=== PATIENT | female | born 1995 | race Caucasian/White ===

== ENCOUNTER 2018-02-18 19:27 | Emergency (ER) | payer OTHER, MEDICAID, SELFPAY ==
[2018-02-18 19:32] VITALS: BP 147/79; PULSE 92; RESP 20; TEMP 37.3; O2SAT 100
--- NOTE | 2018-02-18 19:39 | ED.ABDPAIN ---
HPI - Abdominal Pain <Kelley Glover PA-C - Last Filed: 02/18/18 22:18> General Chief Complaint: Abdominal Pain Stated Complaint: right side pain x2 days Time Seen by Provider: 02/18/18 19:39 Source: patient Mode of arrival: ambulatory Limitations: no limitations History of Present Illness HPI narrative: This 22-year-old female comes in due to recurrent right upper quadrant pain that starts shortly after eating. This started about a month ago. She states the pain radiates into the shoulder area, usually occurs at night after dinner. Tonight, the she had an egg roll and orange chicken, and states she ate some cookie dough earlier. It occured after eating ice cream previously as well. Pain started shortly after dinner. She states that she saw her PCP 2 or 3 times for this and had an ultrasound which was normal. She was not symptomatic when the pain happened, was told due to muscle spasm. She states that Flexeril was prescribed but not helpful. She denies any nausea or vomiting. She denies any fever. She denies any new urinary symptoms. She denies any bowel habit changes. She denies any possibility of , not sexually active currently. States her last period was last month. She states pain can radiate into her shoulder area but denies any chest pain, dyspnea, or other new symptoms. Related Data Previous Rx's Medication Instructions Recorded azithromycin [Zithromax Z-Miki] 0 tab PO QDAY #6 tab 04/01/17 Allergies Allergy/AdvReac Type Severity Reaction Status Date / Time clindamycin [CLINDAMYCIN] Allergy Intermediate hot and Verified 02/18/18 20:02 itchy Penicillins [PENICILLINS] Allergy Intermediate severe Verified 02/18/18 20:02 hives Review of Systems <Kelley Glover PA-C - Last Filed: 02/18/18 22:18> Review of Systems All systems reviewed & are unremarkable except as noted in HPI and below Exam <Kelley Glover PA-C - Last Filed: 02/18/18 22:18> Narrative Exam Narrative: GENERAL APPEARANCE: Patient sitting comfortably, in no distress. HEENT: PERRL, EOMI, no scleral icterus NECK: Supple LUNGS: Clear to auscultation bilaterally. HEART: Rate and rhythm regular, normal S1 and S2, no S3 or S4. ABDOMEN: Soft, nondistended, bowel sounds present x 4 quadrants, no masses palpable, no hepatosplenomegaly. Exquisite right upper quadrant tenderness with positive Dennis sign, no rebound or guarding. No tenderness elsewhere. No CVAT EXTREMITIES: No edema, no cyanosis DERMATOLOGIC: No jaundice or exanthem NEUROLOGIC: Alert and oriented with normal speech and coordination Initial Vital Signs Initial Vital Signs: Vital Signs Temperature 99.1 F 02/18/18 19:32 Pulse Rate 92 H 02/18/18 19:32 Respiratory Rate 20 02/18/18 19:32 Blood Pressure 147/79 H 02/18/18 19:32 Pulse Oximetry 100 02/18/18 19:32 <Nia Hanson DO - Last Filed: 02/19/18 03:02> Initial Vital Signs Initial Vital Signs: Vital Signs Temperature 99.1 F 02/18/18 19:32 Pulse Rate 92 H 02/18/18 19:32 Respiratory Rate 20 02/18/18 19:32 Blood Pressure 147/79 H 02/18/18 19:32 Pulse Oximetry 100 02/18/18 19:32 Course <Kelley Glover PA-C - Last Filed: 02/18/18 22:18> Additional Information: Patient is feeling improved prior to discharge. Advised she does not appear to have any acute surgical issue or need for admission, but her pain is recurrent. Explained that I suspect some type of biliary colic source that is not evident on scans or labs, and may need more specialized workup and testing. Advised follow-up with PCP to discuss and she is agreeable with this as well as plan for return if any acutely worsening symptoms or new symptoms such as vomiting or fever in the interim. Orders Ordered: ED Orders 02/18/18 19:40 Complete Blood Count AUTO DIFF Stat Comprehensive Metabolic Panel Stat Lipase Stat 02/18/18 19:46 US abdomen complete Stat 02/18/18 20:36 CT abdomen pelvis w con Stat Discontinued Medications Sodium Chloride (Normal Saline 0.9%) 1,000 mls @ 1,000 mls/hr IV BOLUS ONE Stop: 02/18/18 21:38 Last Infusion: 02/18/18 22:12 Dose: 0 mls/hr Admin: 02/18/18 20:43 Dose: 1,000 mls/hr Ketorolac Tromethamine (Toradol) 30 mg IV NOW ONE Stop: 02/18/18 19:47 Last Admin: 02/18/18 20:02 Dose: 30 mg Vital Signs - 8 hr 02/18/18 19:32 02/18/18 22:09 Temperature 99.1 F Pulse Rate 92 H 71 Respiratory Rate 20 16 Blood Pressure 147/79 H 107/58 L Pulse Oximetry 100 99 <Nia Hanson DO - Last Filed: 02/19/18 03:02> Orders Ordered: ED Orders 02/18/18 19:40 Complete Blood Count AUTO DIFF Stat Comprehensive Metabolic Panel Stat Lipase Stat 02/18/18 19:46 US abdomen complete Stat 02/18/18 20:36 CT abdomen pelvis w con Stat Discontinued Medications Sodium Chloride (Normal Saline 0.9%) 1,000 mls @ 1,000 mls/hr IV BOLUS ONE Stop: 02/18/18 21:38 Last Infusion: 02/18/18 22:12 Dose: 0 mls/hr Admin: 02/18/18 20:43 Dose: 1,000 mls/hr Ketorolac Tromethamine (Toradol) 30 mg IV NOW ONE Stop: 02/18/18 19:47 Last Admin: 02/18/18 20:02 Dose: 30 mg Vital Signs - 8 hr 02/18/18 19:32 02/18/18 22:09 Temperature 99.1 F Pulse Rate 92 H 71 Respiratory Rate 20 16 Blood Pressure 147/79 H 107/58 L Pulse Oximetry 100 99 MDM - Abdominal Pain <Kelley Glover PA-C - Last Filed: 02/18/18 22:18> Lab Data Attestation: I reviewed the patient's lab results. Result diagrams: 02/18/18 19:40 02/18/18 19:40 Lab Results 02/18/18 02/18/18 Range/Units 19:40 19:40 WBC 10.6 (4.5-11.0) X10^3/uL RBC 4.25 (4.0-5.2) X10^6/uL Hgb 12.3 (12.0-16.0) g/dL Hct 36.4 (36-46) % MCV 85.7 (80-100) fL MCH 29.0 (26-34) PG MCHC 33.8 (30-36) % RDW 14.3 (11.6-14.8) % Plt Count 327 (150-400) X10^3/uL Neut % (Auto) 60.8 (50-75) % Lymph % (Auto) 31.2 (25-40) % [place] % (Auto) 6.1 (3-14) % Eos % (Auto) 1.5 L (2-4) % Baso % (Auto) 0.4 (0-2) % Neut # (Auto) 6400 H (8889-5990) /uL Sodium 142 (137-145) mmol/L Potassium 4.0 (3.4-5.1) mmol/L Chloride 105 (98-107) mmol/L Carbon Dioxide 25 (22-32) mmol/L BUN 16 (7-17) mg/dL Creatinine 0.60 (0.52-1.04) mg/dL Estimated GFR > 60.0 (>60) mL/min BUN/Creatinine Ratio 26.7 H (6-22) Glucose 101 H (70-100) mg/dL Calcium 9.2 (8.4-10.2) mg/dL Total Bilirubin 0.2 (0.2-1.3) mg/dL AST 25 (14-36) IU/L ALT 26 (9-52) IU/L Alkaline Phosphatase 49 (38-126) U/L Total Protein 7.7 (6.3-8.2) g/dL Albumin 4.5 (3.5-5.0) g/dL Globulin 3.2 (1.7-4.1) g/dL Albumin/Globulin Ratio 1.4 (1.0-2.8) Lipase 137 (23-300) U/L Point of care testing: Point of Care Testing Test Results Negative Urine Dip Bedside Urine Glucose Negative Bedside Urine Bilirubin - Negative Bedside Urine Ketone - Negative Urine Specific [place] 1.025 Bedside Urine Occult Blood - Negative Bedside Urine pH 6 Bedside Urine Protein +/- 15 Bedside Urine Urobilinogen - Negative Bedside Urine Nitrite - Negative Bedside Urine Leukocytes - Negative Esterase Imaging Data CT scan - abdomen: Radiologist's impression: [address] [address] [address] Scan Report Signed Patient: Eli CrawfordMR#: [id number] : 1995Acct:[id number] Age/Sex: 22 / FDate of Service: 02/18/18 Loc: ED Accession Number: [id number] Procedure: CT abdomen pelvis w con Ordering Provider: Kelley Glover P.A-C PROCEDURE: CT ABDOMEN PELVIS W CON INDICATIONS: R UQ pain recurrent TECHNIQUE: After the administration of intravenous contrast, 5 mm thick sections acquired from the diaphragm to the symphysis. 5 mm coronal and sagittal reformats were acquired. For radiation dose reduction, the following was used: automated exposure control, adjustment of mA and/or kV according to patient size. COMPARISON: None. FINDINGS: Image quality: Excellent. ABDOMEN: Lung bases: Lung bases are clear. Heart size is normal. Solid organs: Liver is normal in size and enhancement. Gallbladder appears normal, contracted. Biliary system is non dilated. Pancreas enhances normally. Spleen is normal in size and enhancement. No adrenal nodules. Kidneys demonstrate normal size and enhancement, without hydronephrosis. Peritoneum and bowel: Bowel loops demonstrate normal wall thickness and caliber. No free fluid or air. There is mild gentle colonic obstipation Nodes and vessels: No retroperitoneal or mesenteric adenopathy by size criteria. Aorta and inferior vena cava are normal in size. Miscellaneous: No ventral hernias. PELVIS: Genitourinary: Bladder wall thickness is normal. Miscellaneous: No inguinal hernias or adenopathy. Bones: No suspicious bony lesions. No vertebral body compression fractures. IMPRESSION: A mild degree of colonic obstipation is present. No inflammatory changes seen. Source of current symptoms is not found otherwise. Dictated by: Shaw Billingsley M.D. on 02/18/2018 at 21:11 Approved by: Shaw Billingsley M.D. on 02/18/2018 at 21:12 US - abdomen: Radiologist's impression: [address] [address] Ultrasound Report Signed Patient: Eli CrawfordMR#: [id number] : 1995Acct:[id number] Age/Sex: 22 / FDate of Service: 02/18/18 Loc: ED Accession Number: [id number] Procedure: US abdomen complete Ordering Provider: Kelley Glover P.A-C PROCEDURE: US ABDOMEN COMPLETE INDICATIONS: post prandial R. UQ pain TECHNIQUE: Real-time scanning was performed of the abdominal and retroperitoneal organs, with image documentation. COMPARISON: None. FINDINGS: Liver: Liver is normal in size and homogeneous in echotexture. Gallbladder: The gallbladder appears normal Biliary ducts: Intrahepatic bile ducts are non-dilated. Extrahepatic bile duct caliber measures 4.0 mm. Normal is 6-7 mm or less in diameter, or 10 mm or less post-cholecystectomy. Pancreas: Visualized portions of the pancreas are sonographically normal. Spleen: Spleen is normal in size and homogeneous in echotexture. Kidneys: Kidneys are normal in size and echotexture. Right kidney measures 12.3 cm long; left kidney measures 11.6 cm long. No hydronephrosis or nephrolithiasis. No solid masses. Aorta: Visualized aorta is normal in caliber at less than 3 cm. Iliacs: Proximal common iliac arteries are normal in caliber at less than 2.5 cm. IVC: Intrahepatic inferior vena cava is patent. Miscellaneous: No free abdominal fluid. IMPRESSION: Normal examination, no sign of hepatobiliary disease. Source of right upper quadrant pain is not found. Dictated by: Shaw Billingsley M.D. on 02/18/2018 at 21:01 Approved by: Shaw Billingsley M.D. on 02/18/2018 at 21:02 <Nia Hanson DO - Last Filed: 02/19/18 03:02> Lab Data Lab Results 02/18/18 02/18/18 Range/Units 19:40 19:40 WBC 10.6 (4.5-11.0) X10^3/uL RBC 4.25 (4.0-5.2) X10^6/uL Hgb 12.3 (12.0-16.0) g/dL Hct 36.4 (36-46) % MCV 85.7 (80-100) fL MCH 29.0 (26-34) PG MCHC 33.8 (30-36) % RDW 14.3 (11.6-14.8) % Plt Count 327 (150-400) X10^3/uL Neut % (Auto) 60.8 (50-75) % Lymph % (Auto) 31.2 (25-40) % [place] % (Auto) 6.1 (3-14) % Eos % (Auto) 1.5 L (2-4) % Baso % (Auto) 0.4 (0-2) % Neut # (Auto) 6400 H (9046-0982) /uL Sodium 142 (137-145) mmol/L Potassium 4.0 (3.4-5.1) mmol/L Chloride 105 (98-107) mmol/L Carbon Dioxide 25 (22-32) mmol/L BUN 16 (7-17) mg/dL Creatinine 0.60 (0.52-1.04) mg/dL Estimated GFR > 60.0 (>60) mL/min BUN/Creatinine Ratio 26.7 H (6-22) Glucose 101 H (70-100) mg/dL Calcium 9.2 (8.4-10.2) mg/dL Total Bilirubin 0.2 (0.2-1.3) mg/dL AST 25 (14-36) IU/L ALT 26 (9-52) IU/L Alkaline Phosphatase 49 (38-126) U/L Total Protein 7.7 (6.3-8.2) g/dL Albumin 4.5 (3.5-5.0) g/dL Globulin 3.2 (1.7-4.1) g/dL Albumin/Globulin Ratio 1.4 (1.0-2.8) Lipase 137 (23-300) U/L Point of care testing: Point of Care Testing Test Results Negative Urine Dip Bedside Urine Glucose Negative Bedside Urine Bilirubin - Negative Bedside Urine Ketone - Negative Urine Specific [place] 1.025 Bedside Urine Occult Blood - Negative Bedside Urine pH 6 Bedside Urine Protein +/- 15 Bedside Urine Urobilinogen - Negative Bedside Urine Nitrite - Negative Bedside Urine Leukocytes - Negative Esterase Discharge Plan Departure Patient Disposition: Home Clinical Impression: Abdominal pain, Biliary pain Discharge Date/Time: 02/18/18 22:09 Interventions: ED Discharge Assessment Last Done: 02/18/18 22:09 Instructions: DI for Abdominal Pain-Adult Activity Restrictions/Additional Instructions: Please return if you have acutely worsening symptoms again, or new symptoms with this such as vomiting or fever. Otherwise, please try eating small amounts of bland food more frequently. Avoid eating any fatty or greasy foods. The pattern and quality of your pain on your history and when I examined you tonight very similar to gallbladder pain, but your testing does not show any problem there. There are some types of problems that may not show up on these tests, i.e. Sphincter of Oddi dysfunction, which relates to a gallbladder muscle and may not show up on testing. Please follow-up with your PCP this week and talk about further testing and a possible referral to a specialist for further evaluation since the muscle relaxant you tried did not help. Please take 800mg (4 over the counter tablets) of Ibuprofen and you can add Tylenol as needed if you have recurrent pain at home. Prescriptions: No Action azithromycin [Zithromax Z-Miki] 250 MG tablet PO QDAY Qty: 6 RF: 0 Referrals: Padmaja Bhat DO [Non-Staff] - <Nia Hanson DO - Last Filed: 02/19/18 03:02> Cosign ED Attending Cosignature Attestation: I was immediately available in the department for consultation. This documentation has been reviewed and I agree with assessment and plan. Supervised by Nia Hanson DO
--- NOTE | 2018-02-18 19:46 | DI.US.S_ITS ---
PROCEDURE: US ABDOMEN COMPLETE INDICATIONS: post prandial R. UQ pain TECHNIQUE: Real-time scanning was performed of the abdominal and retroperitoneal organs, with image documentation. COMPARISON: None. FINDINGS: Liver: Liver is normal in size and homogeneous in echotexture. Gallbladder: The gallbladder appears normal Biliary ducts: Intrahepatic bile ducts are non-dilated. Extrahepatic bile duct caliber measures 4.0 mm. Normal is 6-7 mm or less in diameter, or 10 mm or less post-cholecystectomy. Pancreas: Visualized portions of the pancreas are sonographically normal. Spleen: Spleen is normal in size and homogeneous in echotexture. Kidneys: Kidneys are normal in size and echotexture. Right kidney measures 12.3 cm long; left kidney measures 11.6 cm long. No hydronephrosis or nephrolithiasis. No solid masses. Aorta: Visualized aorta is normal in caliber at less than 3 cm. Iliacs: Proximal common iliac arteries are normal in caliber at less than 2.5 cm. IVC: Intrahepatic inferior vena cava is patent. Miscellaneous: No free abdominal fluid. IMPRESSION: Normal examination, no sign of hepatobiliary disease. Source of right upper quadrant pain is not found. Dictated by: Shaw Billingsley M.D. on 02/18/2018 at 21:01 Approved by: Shaw Billingsley M.D. on 02/18/2018 at 21:02
--- NOTE | 2018-02-18 19:59 | ED_ITS ---
HPI - Abdominal Pain <Kelley Glover PA-C - Last Filed: 02/18/18 22:18> General Chief Complaint: Abdominal Pain Stated Complaint: right side pain x2 days Time Seen by Provider: 02/18/18 19:39 Source: patient Mode of arrival: ambulatory Limitations: no limitations History of Present Illness HPI narrative: This 22-year-old female comes in due to recurrent right upper quadrant pain that starts shortly after eating. This started about a month ago. She states the pain radiates into the shoulder area, usually occurs at night after dinner. Tonight, the she had an egg roll and orange chicken, and states she ate some cookie dough earlier. It occured after eating ice cream previously as well. Pain started shortly after dinner. She states that she saw her PCP 2 or 3 times for this and had an ultrasound which was normal. She was not symptomatic when the pain happened, was told due to muscle spasm. She states that Flexeril was prescribed but not helpful. She denies any nausea or vomiting. She denies any fever. She denies any new urinary symptoms. She denies any bowel habit changes. She denies any possibility of , not sexually active currently. States her last period was last month. She states pain can radiate into her shoulder area but denies any chest pain, dyspnea, or other new symptoms. Related Data Previous Rx's Medication Instructions Recorded azithromycin [Zithromax Z-Miki] 0 tab PO QDAY #6 tab 04/01/17 Allergies Allergy/AdvReac Type Severity Reaction Status Date / Time clindamycin [CLINDAMYCIN] Allergy Intermediate hot and Verified 02/18/18 20:02 itchy Penicillins [PENICILLINS] Allergy Intermediate severe Verified 02/18/18 20:02 hives Review of Systems <Kelley Glover PA-C - Last Filed: 02/18/18 22:18> Review of Systems All systems reviewed & are unremarkable except as noted in HPI and below Exam <Kelley Glover PA-C - Last Filed: 02/18/18 22:18> Narrative Exam Narrative: GENERAL APPEARANCE: Patient sitting comfortably, in no distress. HEENT: PERRL, EOMI, no scleral icterus NECK: Supple LUNGS: Clear to auscultation bilaterally. HEART: Rate and rhythm regular, normal S1 and S2, no S3 or S4. ABDOMEN: Soft, nondistended, bowel sounds present x 4 quadrants, no masses palpable, no hepatosplenomegaly. Exquisite right upper quadrant tenderness with positive Dennis sign, no rebound or guarding. No tenderness elsewhere. No CVAT EXTREMITIES: No edema, no cyanosis DERMATOLOGIC: No jaundice or exanthem NEUROLOGIC: Alert and oriented with normal speech and coordination Initial Vital Signs Initial Vital Signs: Vital Signs Temperature 99.1 F 02/18/18 19:32 Pulse Rate 92 H 02/18/18 19:32 Respiratory Rate 20 02/18/18 19:32 Blood Pressure 147/79 H 02/18/18 19:32 Pulse Oximetry 100 02/18/18 19:32 <Nia Hanson DO - Last Filed: 02/19/18 03:02> Initial Vital Signs Initial Vital Signs: Vital Signs Temperature 99.1 F 02/18/18 19:32 Pulse Rate 92 H 02/18/18 19:32 Respiratory Rate 20 02/18/18 19:32 Blood Pressure 147/79 H 02/18/18 19:32 Pulse Oximetry 100 02/18/18 19:32 Course <Kelley Glover PA-C - Last Filed: 02/18/18 22:18> Additional Information: Patient is feeling improved prior to discharge. Advised she does not appear to have any acute surgical issue or need for admission, but her pain is recurrent. Explained that I suspect some type of biliary colic source that is not evident on scans or labs, and may need more specialized workup and testing. Advised follow-up with PCP to discuss and she is agreeable with this as well as plan for return if any acutely worsening symptoms or new symptoms such as vomiting or fever in the interim. Orders Ordered: ED Orders 02/18/18 19:40 Complete Blood Count AUTO DIFF Stat Comprehensive Metabolic Panel Stat Lipase Stat 02/18/18 19:46 US abdomen complete Stat 02/18/18 20:36 CT abdomen pelvis w con Stat Discontinued Medications Sodium Chloride (Normal Saline 0.9%) 1,000 mls @ 1,000 mls/hr IV BOLUS ONE Stop: 02/18/18 21:38 Last Infusion: 02/18/18 22:12 Dose: 0 mls/hr Admin: 02/18/18 20:43 Dose: 1,000 mls/hr Ketorolac Tromethamine (Toradol) 30 mg IV NOW ONE Stop: 02/18/18 19:47 Last Admin: 02/18/18 20:02 Dose: 30 mg Vital Signs - 8 hr 02/18/18 19:32 02/18/18 22:09 Temperature 99.1 F Pulse Rate 92 H 71 Respiratory Rate 20 16 Blood Pressure 147/79 H 107/58 L Pulse Oximetry 100 99 <Nia Hanson DO - Last Filed: 02/19/18 03:02> Orders Ordered: ED Orders 02/18/18 19:40 Complete Blood Count AUTO DIFF Stat Comprehensive Metabolic Panel Stat Lipase Stat 02/18/18 19:46 US abdomen complete Stat 02/18/18 20:36 CT abdomen pelvis w con Stat Discontinued Medications Sodium Chloride (Normal Saline 0.9%) 1,000 mls @ 1,000 mls/hr IV BOLUS ONE Stop: 02/18/18 21:38 Last Infusion: 02/18/18 22:12 Dose: 0 mls/hr Admin: 02/18/18 20:43 Dose: 1,000 mls/hr Ketorolac Tromethamine (Toradol) 30 mg IV NOW ONE Stop: 02/18/18 19:47 Last Admin: 02/18/18 20:02 Dose: 30 mg Vital Signs - 8 hr 02/18/18 19:32 02/18/18 22:09 Temperature 99.1 F Pulse Rate 92 H 71 Respiratory Rate 20 16 Blood Pressure 147/79 H 107/58 L Pulse Oximetry 100 99 MDM - Abdominal Pain <Kelley Glover PA-C - Last Filed: 02/18/18 22:18> Lab Data Attestation: I reviewed the patient's lab results. Result diagrams: 02/18/18 19:40 02/18/18 19:40 Lab Results 02/18/18 02/18/18 Range/Units 19:40 19:40 WBC 10.6 (4.5-11.0) X10^3/uL RBC 4.25 (4.0-5.2) X10^6/uL Hgb 12.3 (12.0-16.0) g/dL Hct 36.4 (36-46) % MCV 85.7 (80-100) fL MCH 29.0 (26-34) PG MCHC 33.8 (30-36) % RDW 14.3 (11.6-14.8) % Plt Count 327 (150-400) X10^3/uL Neut % (Auto) 60.8 (50-75) % Lymph % (Auto) 31.2 (25-40) % [place] % (Auto) 6.1 (3-14) % Eos % (Auto) 1.5 L (2-4) % Baso % (Auto) 0.4 (0-2) % Neut # (Auto) 6400 H (2570-5475) /uL Sodium 142 (137-145) mmol/L Potassium 4.0 (3.4-5.1) mmol/L Chloride 105 (98-107) mmol/L Carbon Dioxide 25 (22-32) mmol/L BUN 16 (7-17) mg/dL Creatinine 0.60 (0.52-1.04) mg/dL Estimated GFR > 60.0 (>60) mL/min BUN/Creatinine Ratio 26.7 H (6-22) Glucose 101 H (70-100) mg/dL Calcium 9.2 (8.4-10.2) mg/dL Total Bilirubin 0.2 (0.2-1.3) mg/dL AST 25 (14-36) IU/L ALT 26 (9-52) IU/L Alkaline Phosphatase 49 (38-126) U/L Total Protein 7.7 (6.3-8.2) g/dL Albumin 4.5 (3.5-5.0) g/dL Globulin 3.2 (1.7-4.1) g/dL Albumin/Globulin Ratio 1.4 (1.0-2.8) Lipase 137 (23-300) U/L Point of care testing: Point of Care Testing Test Results Negative Urine Dip Bedside Urine Glucose Negative Bedside Urine Bilirubin - Negative Bedside Urine Ketone - Negative Urine Specific [place] 1.025 Bedside Urine Occult Blood - Negative Bedside Urine pH 6 Bedside Urine Protein +/- 15 Bedside Urine Urobilinogen - Negative Bedside Urine Nitrite - Negative Bedside Urine Leukocytes - Negative Esterase Imaging Data CT scan - abdomen: Radiologist's impression: [address] [address] [address] Scan Report Signed Patient: Eli CrawfordMR#: [id number] : 1995Acct:[id number] Age/Sex: 22 / FDate of Service: 02/18/18 Loc: ED Accession Number: [id number] Procedure: CT abdomen pelvis w con Ordering Provider: Kelley Glover P.A-C PROCEDURE: CT ABDOMEN PELVIS W CON INDICATIONS: R UQ pain recurrent TECHNIQUE: After the administration of intravenous contrast, 5 mm thick sections acquired from the diaphragm to the symphysis. 5 mm coronal and sagittal reformats were acquired. For radiation dose reduction, the following was used: automated exposure control, adjustment of mA and/or kV according to patient size. COMPARISON: None. FINDINGS: Image quality: Excellent. ABDOMEN: Lung bases: Lung bases are clear. Heart size is normal. Solid organs: Liver is normal in size and enhancement. Gallbladder appears normal, contracted. Biliary system is non dilated. Pancreas enhances normally. Spleen is normal in size and enhancement. No adrenal nodules. Kidneys demonstrate normal size and enhancement, without hydronephrosis. Peritoneum and bowel: Bowel loops demonstrate normal wall thickness and caliber. No free fluid or air. There is mild gentle colonic obstipation Nodes and vessels: No retroperitoneal or mesenteric adenopathy by size criteria. Aorta and inferior vena cava are normal in size. Miscellaneous: No ventral hernias. PELVIS: Genitourinary: Bladder wall thickness is normal. Miscellaneous: No inguinal hernias or adenopathy. Bones: No suspicious bony lesions. No vertebral body compression fractures. IMPRESSION: A mild degree of colonic obstipation is present. No inflammatory changes seen. Source of current symptoms is not found otherwise. Dictated by: Shaw Billingsley M.D. on 02/18/2018 at 21:11 Approved by: Shaw Billingsley M.D. on 02/18/2018 at 21:12 US - abdomen: Radiologist's impression: [address] [address] Ultrasound Report Signed Patient: Eli CrawfordMR#: [id number] : 1995Acct:[id number] Age/Sex: 22 / FDate of Service: 02/18/18 Loc: ED Accession Number: [id number] Procedure: US abdomen complete Ordering Provider: Kelley Glover P.A-C PROCEDURE: US ABDOMEN COMPLETE INDICATIONS: post prandial R. UQ pain TECHNIQUE: Real-time scanning was performed of the abdominal and retroperitoneal organs, with image documentation. COMPARISON: None. FINDINGS: Liver: Liver is normal in size and homogeneous in echotexture. Gallbladder: The gallbladder appears normal Biliary ducts: Intrahepatic bile ducts are non-dilated. Extrahepatic bile duct caliber measures 4.0 mm. Normal is 6-7 mm or less in diameter, or 10 mm or less post-cholecystectomy. Pancreas: Visualized portions of the pancreas are sonographically normal. Spleen: Spleen is normal in size and homogeneous in echotexture. Kidneys: Kidneys are normal in size and echotexture. Right kidney measures 12.3 cm long; left kidney measures 11.6 cm long. No hydronephrosis or nephrolithiasis. No solid masses. Aorta: Visualized aorta is normal in caliber at less than 3 cm. Iliacs: Proximal common iliac arteries are normal in caliber at less than 2.5 cm. IVC: Intrahepatic inferior vena cava is patent. Miscellaneous: No free abdominal fluid. IMPRESSION: Normal examination, no sign of hepatobiliary disease. Source of right upper quadrant pain is not found. Dictated by: Shaw Billingsley M.D. on 02/18/2018 at 21:01 Approved by: Shaw Billingsley M.D. on 02/18/2018 at 21:02 <Nia Hanson DO - Last Filed: 02/19/18 03:02> Lab Data Lab Results 02/18/18 02/18/18 Range/Units 19:40 19:40 WBC 10.6 (4.5-11.0) X10^3/uL RBC 4.25 (4.0-5.2) X10^6/uL Hgb 12.3 (12.0-16.0) g/dL Hct 36.4 (36-46) % MCV 85.7 (80-100) fL MCH 29.0 (26-34) PG MCHC 33.8 (30-36) % RDW 14.3 (11.6-14.8) % Plt Count 327 (150-400) X10^3/uL Neut % (Auto) 60.8 (50-75) % Lymph % (Auto) 31.2 (25-40) % [place] % (Auto) 6.1 (3-14) % Eos % (Auto) 1.5 L (2-4) % Baso % (Auto) 0.4 (0-2) % Neut # (Auto) 6400 H (9082-8141) /uL Sodium 142 (137-145) mmol/L Potassium 4.0 (3.4-5.1) mmol/L Chloride 105 (98-107) mmol/L Carbon Dioxide 25 (22-32) mmol/L BUN 16 (7-17) mg/dL Creatinine 0.60 (0.52-1.04) mg/dL Estimated GFR > 60.0 (>60) mL/min BUN/Creatinine Ratio 26.7 H (6-22) Glucose 101 H (70-100) mg/dL Calcium 9.2 (8.4-10.2) mg/dL Total Bilirubin 0.2 (0.2-1.3) mg/dL AST 25 (14-36) IU/L ALT 26 (9-52) IU/L Alkaline Phosphatase 49 (38-126) U/L Total Protein 7.7 (6.3-8.2) g/dL Albumin 4.5 (3.5-5.0) g/dL Globulin 3.2 (1.7-4.1) g/dL Albumin/Globulin Ratio 1.4 (1.0-2.8) Lipase 137 (23-300) U/L Point of care testing: Point of Care Testing Test Results Negative Urine Dip Bedside Urine Glucose Negative Bedside Urine Bilirubin - Negative Bedside Urine Ketone - Negative Urine Specific [place] 1.025 Bedside Urine Occult Blood - Negative Bedside Urine pH 6 Bedside Urine Protein +/- 15 Bedside Urine Urobilinogen - Negative Bedside Urine Nitrite - Negative Bedside Urine Leukocytes - Negative Esterase Discharge Plan Departure Patient Disposition: Home Clinical Impression: Abdominal pain, Biliary pain Discharge Date/Time: 02/18/18 22:09 Interventions: ED Discharge Assessment Last Done: 02/18/18 22:09 Instructions: DI for Abdominal Pain-Adult Activity Restrictions/Additional Instructions: Please return if you have acutely worsening symptoms again, or new symptoms with this such as vomiting or fever. Otherwise, please try eating small amounts of bland food more frequently. Avoid eating any fatty or greasy foods. The pattern and quality of your pain on your history and when I examined you tonight very similar to gallbladder pain, but your testing does not show any problem there. There are some types of problems that may not show up on these tests, i.e. Sphincter of Oddi dysfunction, which relates to a gallbladder muscle and may not show up on testing. Please follow-up with your PCP this week and talk about further testing and a possible referral to a specialist for further evaluation since the muscle relaxant you tried did not help. Please take 800mg (4 over the counter tablets) of Ibuprofen and you can add Tylenol as needed if you have recurrent pain at home. Prescriptions: No Action azithromycin [Zithromax Z-Miki] 250 MG tablet PO QDAY Qty: 6 RF: 0 Referrals: Padmaja Bhat DO [Non-Staff] - <Nia Hanson DO - Last Filed: 02/19/18 03:02> Cosign ED Attending Cosignature Attestation: I was immediately available in the department for consultation. This documentation has been reviewed and I agree with assessment and plan. Supervised by Nia Hanson DO
[2018-02-18 20:02] LABS: Add Manual Diff / Slide Review NO; Basophils Percent Auto 0.4 % (0-2); Eosinophils Percent Auto 1.5 % (2-4); Hematocrit 36.4 % (36-46); Hemoglobin 12.3 g/dL (12.0-16.0); Lymphocytes Percent Auto 31.2 % (25-40); Mean Corpuscular HGB Conc 33.8 % (30-36); Mean Corpuscular Volume 85.7 fL (80-100); Monocytes Percent Auto 6.1 % (3-14); Neutrophils Absolute Auto 6400 /uL (3000-5900); Neutrophils Percent Auto 60.8 % (50-75); Platelet Count 327 X10^3/uL (150-400); Red Blood Cell Count 4.25 X10^6/uL (4.0-5.2); Red Cell Distribution Width 14.3 % (11.6-14.8); White Blood Cell Count 10.6 X10^3/uL (4.5-11.0)
[2018-02-18] MEDS: KETOROLAC 60 MG/2 ML VIAL 30 MG IV (20:02)
[2018-02-18 20:12] LABS: Alanine Aminotransferase 26 IU/L (9-52); Albumin 4.5 g/dL (3.5-5.0); Albumin Globulin Ratio 1.4 (1.0-2.8); Alkaline Phosphatase 49 U/L (38-126); Aspartate Aminotransferase 25 IU/L (14-36); BUN Creatinine Ratio 26.7 (6-22); Bilirubin Total 0.2 mg/dL (0.2-1.3); Blood Urea Nitrogen 16 mg/dL (7-17); Calcium 9.2 mg/dL (8.4-10.2); Carbon Dioxide 25 mmol/L (22-32); Chloride 105 mmol/L (98-107); Estimated Glomerular Filt Rate > 60.0 mL/min (>60); Globulin 3.2 g/dL (1.7-4.1); Glucose 101 mg/dL (70-100); HEMOLYSIS 16 (0-50); Lipase 137 U/L (23-300); Sodium 142 mmol/L (137-145); Total Protein 7.7 g/dL (6.3-8.2)
--- NOTE | 2018-02-18 20:36 | DI.CT.S_ITS ---
PROCEDURE: CT ABDOMEN PELVIS W CON INDICATIONS: R UQ pain recurrent TECHNIQUE: After the administration of intravenous contrast, 5 mm thick sections acquired from the diaphragm to the symphysis. 5 mm coronal and sagittal reformats were acquired. For radiation dose reduction, the following was used: automated exposure control, adjustment of mA and/or kV according to patient size. COMPARISON: None. FINDINGS: Image quality: Excellent. ABDOMEN: Lung bases: Lung bases are clear. Heart size is normal. Solid organs: Liver is normal in size and enhancement. Gallbladder appears normal, contracted. Biliary system is non dilated. Pancreas enhances normally. Spleen is normal in size and enhancement. No adrenal nodules. Kidneys demonstrate normal size and enhancement, without hydronephrosis. Peritoneum and bowel: Bowel loops demonstrate normal wall thickness and caliber. No free fluid or air. There is mild gentle colonic obstipation Nodes and vessels: No retroperitoneal or mesenteric adenopathy by size criteria. Aorta and inferior vena cava are normal in size. Miscellaneous: No ventral hernias. PELVIS: Genitourinary: Bladder wall thickness is normal. Miscellaneous: No inguinal hernias or adenopathy. Bones: No suspicious bony lesions. No vertebral body compression fractures. IMPRESSION: A mild degree of colonic obstipation is present. No inflammatory changes seen. Source of current symptoms is not found otherwise. Dictated by: Shaw Billingsley M.D. on 02/18/2018 at 21:11 Approved by: Shaw Billingsley M.D. on 02/18/2018 at 21:12
[2018-02-18] MEDS: SODIUM CHLORIDE 0.9% 1,000 ML 1000 ML IV (20:43)
[2018-02-18 22:09] VITALS: BP 107/58; PULSE 71; RESP 16; O2SAT 99
== END 2018-02-18 22:09 | disposition home or self-care (01) ==
PROVIDERS: Emergency Provider Internal Medicine
DX: K80.50 Calculus of bile duct without cholangitis or cholecystitis without obstruction (principal); R10.9 Unspecified abdominal pain
CPT/HCPCS: 36591; 74177; 76700; 80053; 81003; 81025; 83690; 85025; 96361; 96374; 99283; 99285; J1885; Q9967

== ENCOUNTER 2019-03-18 20:01 | Emergency (ER) | payer OTHER, MEDICAID, SELFPAY ==
[2019-03-18 20:02] VITALS: BP 109/66; PULSE 70; RESP 18; TEMP 37.1; O2SAT 100
[2019-03-18] MEDS: SODIUM CHLORIDE 0.9% 1,000 ML 1000 ML IV (20:13)
[2019-03-18 20:19] LABS: Add Manual Diff / Slide Review NO; Basophils Absolute Auto 0 /uL (0-100); Basophils Percent Auto 0.5 % (0-2); Eosinophils Absolute Auto 100 /uL (0-450); Eosinophils Percent Auto 1.2 % (2-4); Hematocrit 37.1 % (36-46); Hemoglobin 12.6 g/dL (12.0-16.0); Lymphocytes Absolute Auto 3400 /uL (1100-4500); Lymphocytes Percent Auto 34.1 % (25-40); Mean Corpuscular HGB Conc 33.9 % (30-36); Mean Corpuscular Hemoglobin 30.3 PG (26-34); Mean Corpuscular Volume 89.2 fL (80-100); Monocytes Absolute Auto 700 /uL (0-900); Monocytes Percent Auto 6.9 % (3-14); Neutrophils Absolute Auto 5800 /uL (1500-7000); Neutrophils Percent Auto 57.3 % (50-75); Platelet Count 334 X10^3/uL (150-400); Red Blood Cell Count 4.16 X10^6/uL (4.0-5.2); Red Cell Distribution Width 13.7 % (11.6-14.8); White Blood Cell Count 10.1 X10^3/uL (4.5-11.0)
[2019-03-18 20:26] LABS: Pregnancy Test Serum,Qual Positive (Negative)
[2019-03-18 20:38] VITALS: BP 103/51; PULSE 53; O2SAT 100
[2019-03-18 20:44] LABS: Prothrombin Time 11.7 SECONDS (10.1-12.7)
[2019-03-18 20:47] LABS: PTT Partial Thromboplastin Tim 28 SECONDS (26.4-36.2)
[2019-03-18 20:48] LABS: Alanine Aminotransferase 12 IU/L (<35); Albumin Globulin Ratio 1.5 (1.0-2.8); Alkaline Phosphatase 38 U/L (38-126); Aspartate Aminotransferase 20 IU/L (14-36); BUN Creatinine Ratio 18.3 (6-22); Bilirubin Total 0.3 mg/dL (0.2-1.3); Blood Urea Nitrogen 11 mg/dL (7-17); Calcium 8.3 mg/dL (8.4-10.2); Carbon Dioxide 24 mmol/L (22-32); Chloride 104 mmol/L (98-107); Estimated Glomerular Filt Rate > 60.0 mL/min (>60); Globulin 2.6 g/dL (1.7-4.1); Glucose 88 mg/dL (70-100); HEMOLYSIS 16 (0-50); Lipase 67 U/L (23-300); Potassium 3.5 mmol/L (3.4-5.1); Sodium 136 mmol/L (137-145); Total Protein 6.6 g/dL (6.3-8.2)
--- NOTE | 2019-03-18 20:58 | PC.NURSE ---
reports normal pee and poop
[2019-03-18 21:10] VITALS: BP 101/43; PULSE 57; RESP 16; O2SAT 100
[2019-03-18 21:44] VITALS: BP 107/43; PULSE 59; O2SAT 99
--- NOTE | 2019-03-18 21:54 | ED_ITS ---
HPI - Abdominal Pain General Chief Complaint: Abdominal Pain Stated Complaint: syncope Time Seen by Provider: 03/18/19 21:54 Source: patient Mode of arrival: EMS Limitations: no limitations History of Present Illness HPI narrative: The patient developed abdominal cramping and nausea at home prior to arrival. She was in the bathroom to use the bathroom. She awoke in the tub, uncertain how she got there. She has no chest pain or palpitations before this event. She'd no visual changes. She did not vomit. She has had no diarrhea. She is having primarily abdominal cramping. She has no chronic or acute cardi opulmonary issues. She has only abdominal symptoms described above. She has no associated dysuria. Her LMP was 1 month +1 day ago. She has no vaginal complaints. Initial testing shows her to be . She was unaware. Related Data Allergies Allergy/AdvReac Type Severity Reaction Status Date / Time clindamycin [CLINDAMYCIN] Allergy Intermediate hot and Verified 03/18/19 21:54 itchy Penicillins [PENICILLINS] Allergy Intermediate severe Verified 03/18/19 21:54 hives Review of Systems Review of Systems ROS Unobtainable: All systems reviewed & are unremarkable except as noted in HPI and below Constitutional Constitutional: Denies chills, Denies fever(s), Denies lethargy and Denies w eakness Eyes Eyes: Denies change in vision and Denies loss of vision ENT Ears, Nose, Mouth, and Throat: Denies change in voice, Denies mouth pain, Denies nasal congestion, Denies neck pain and Denies sore throat Cardiovascular Cardiovascular: Denies chest pain, Denies irregular heart rhythm, Denies lightheadedness, Denies palpitations, Denies dyspnea, Denies dyspnea on exertion and Denies orthopnea Respiratory Respiratory: Denies cough, Denies dyspnea, Denies dyspnea on exertion and Denies wheezing Gastrointestinal Gastrointestinal: Denies abdominal pain, Denies change in bowel habits, Reports nausea and Denies vomiting Genitourinary Genitourinary: Denies hematuria, Denies flank pain, Denies urinary incontinence, Denies urinary urgency and Denies vaginal discharge Comments: No irregular menses. Musculoskeletal Musculoskeletal: Denies back pain, Denies neck pain and Denies numbness Integumentary/Breasts Skin/Breast: Denies erythema, Denies rash and Denies wounds Neurologic Neurologic: Denies confusion, Denies loss of vision, Denies numbness and Denies weakness Psychiatric Psychiatric: Denies anxiety, Denies confusion, Denies depression, Denies homicidal ideation and Denies suicidal ideation Endocrine Endocrine: Denies palpitations Hematologic/Lymphatic Hematologic/Lymphatic: Denies easy bruising Allergic/Immunologic Allergic/Immunologic: Denies wheezing Patient History Medical History Intermittent right upper quadrant abdominal pain (Acute) Surgical History H/O lymph node excision (Resolved) Social History Smoking Status: Never smoker alcohol intake: never substance use type: does not use Smoking Status: Never smoker alcohol intake frequency: 0-2 drinks per day Substance Use Type: does not use Exam Initial Vital Signs Initial Vital Signs: Vital Signs Temperature 98.8 F 03/18/19 20:02 Pulse Rate 70 03/18/19 20:02 Respiratory Rate 18 03/18/19 20:02 Blood Pressure 109/66 03/18/19 20:02 Pulse Oximetry 100 03/18/19 20:02 Const General: cooperative and well developed Nutritional Appearance: well nourished Orientation: alert, awake, oriented x3 and not confused HENMT Face and sinus: normal facial exam Mouth: oral mucosae normal Throat: posterior oropharynx normal Eyes General: appearance normal, both eyes and all related structures Eyelids: eyelids normal Conjunctivae: conjunctivae normal Sclera: sclerae normal Pupils: PERRL EOM: EOM intact bilaterally Neck Neck: full ROM and No lymphadenopathy Resp Effort & Inspection: normal respiratory effort, able to speak in complete sentences, no respiratory distress and no use of accessory muscles Auscultation: clear to auscultation bilaterally, no rales, no rhonchi and no wheezes Cardio Rate: regular rate Rhythm: regular rhythm Heart Sounds: no click, no gallops, no murmurs and no rubs Pulses: normal peripheral pulses GI Inspection: non-distended Palpation: soft, no hepatosplenomegaly, No guarding and tender (Slight periumbilical tenderness, no guarding. No rebound.) Auscultation: normal bowel sounds Back/Spine/Pelvis Back: No CVA tenderness Skin General: no rashes or lesions noted, No jaundice and No petechiae Neuro General: alert, oriented x3, gait normal and no focal motor deficits Speech: speech normal Extrem General: full ROM, no pedal edema and no calf tenderness Course Course Course Narrative: The patient has been hemodynamically stable since arrival. She had abdominal pain earlier resulting syncope. From the evaluation, the cramping is likely associated with , the syncope was likely vasovagal from the cramping discomfort. She has been informed the . She'll be discharged on Zofran for the nausea. She is advised to follow-up with her doctor. Orders Ordered: ED Orders 03/18/19 20:14 Complete Blood Count AUTO DIFF Stat Test Serum,Qual Stat 03/18/19 20:29 Beta HCG, Quant [HCG Quantitative] Stat Comprehensive Metabolic Panel Stat Lipase Stat Partial Thromboplastin Time Stat Prothrombin Time INR Stat 03/18/19 20:49 EKG-12 Lead Routine Discontinued Medications Sodium Chloride (Normal Saline 0.9%) 1,000 mls @ 1,000 mls/hr IV BOLUS ONE Stop: 03/18/19 21:06 Last Infusion: 03/18/19 22:14 Dose: 0 mls/hr Documented by: Admin: 03/18/19 20:13 Dose: 1,000 mls/hr Documented by: CHANG Ondansetron HCl (Zofran) 4 mg IV NOW ONE Stop: 03/18/19 22:05 Last Admin: 03/18/19 22:12 Dose: 4 mg Documented by: NENITA Vital Signs Vital signs: Vital Signs - 8 hr 03/18/19 20:02 03/18/19 20:38 03/18/19 21:10 Temperature 98.8 F Pulse Rate 70 53 L 57 L Respiratory Rate 18 16 Blood Pressure 109/66 Blood Pressure [Right Arm] 103/51 L 101/43 L Pulse Oximetry 100 100 100 03/18/19 21:44 03/18/19 22:40 Temperature Pulse Rate 59 L 51 L Respiratory Rate Blood Pressure Blood Pressure [Right Arm] 107/43 L 99/45 L Pulse Oximetry 99 99 MDM - Abdominal Pain Lab Data Result diagrams: 03/18/19 20:14 03/18/19 20:29 Labs: Lab Results 12/03/18/19 03/18/19 Range/Units 20:14 20:14 20:29 WBC 10.1 (4.5-11.0) X10^3/uL RBC 4.16 (4.0-5.2) X10^6/uL Hgb 12.6 (12.0-16.0) g/dL Hct 37.1 (36-46) % MCV 89.2 (80-100) fL MCH 30.3 (26-34) PG MCHC 33.9 (30-36) % RDW 13.7 (11.6-14.8) % Plt Count 334 (150-400) X10^3/uL Neut % (Auto) 57.3 (50-75) % Lymph % (Auto) 34.1 (25-40) % [place] % (Auto) 6.9 (3-14) % Eos % (Auto) 1.2 L (2-4) % Baso % (Auto) 0.5 (0-2) % Neut # (Auto) 5800 (1390-2891) /uL Lymph # (Auto) 3400 (5213-3149) /uL [place] # (Auto) 700 (0-900) /uL Eos # (Auto) 100 (0-450) /uL Baso # (Auto) 0 (0-100) /uL PT 11.7 (10.1-12.7) SECONDS INR 1.0 (0.9-1.3) APTT 28 (26.4-36.2) SECONDS Sodium (137-145) mmol/L Potassium (3.4-5.1) mmol/L Chloride (98-107) mmol/L Carbon Dioxide (22-32) mmol/L BUN (7-17) mg/dL Creatinine (0.52-1.04) mg/dL Estimated GFR (>60) mL/min BUN/Creatinine Ratio (6-22) Glucose (70-100) mg/dL Calcium (8.4-10.2) mg/dL Total Bilirubin (0.2-1.3) mg/dL AST (14-36) IU/L ALT (<35) IU/L Alkaline Phosphatase (38-126) U/L Total Protein (6.3-8.2) g/dL Albumin (3.5-5.0) g/dL Globulin (1.7-4.1) g/dL Albumin/Globulin Ratio (1.0-2.8) Lipase (23-300) U/L HCG, Quant mIU/mL Serum , Qual Positive H (Negative) 03/18/19 03/18/19 Range/Units 20:29 20:29 WBC (4.5-11.0) X10^3/uL RBC (4.0-5.2) X10^6/uL Hgb (12.0-16.0) g/dL Hct (36-46) % MCV (80-100) fL MCH (26-34) PG MCHC (30-36) % RDW (11.6-14.8) % Plt Count (150-400) X10^3/uL Neut % (Auto) (50-75) % Lymph % (Auto) (25-40) % [place] % (Auto) (3-14) % Eos % (Auto) (2-4) % Baso % (Auto) (0-2) % Neut # (Auto) (4527-2874) /uL Lymph # (Auto) (6746-9550) /uL [place] # (Auto) (0-900) /uL Eos # (Auto) (0-450) /uL Baso # (Auto) (0-100) /uL PT (10.1-12.7) SECONDS INR (0.9-1.3) APTT (26.4-36.2) SECONDS Sodium 136 L (137-145) mmol/L Potassium 3.5 (3.4-5.1) mmol/L Chloride 104 (98-107) mmol/L Carbon Dioxide 24 (22-32) mmol/L BUN 11 (7-17) mg/dL Creatinine 0.60 (0.52-1.04) mg/dL Estimated GFR > 60.0 (>60) mL/min BUN/Creatinine Ratio 18.3 (6-22) Glucose 88 (70-100) mg/dL Calcium 8.3 L (8.4-10.2) mg/dL Total Bilirubin 0.3 (0.2-1.3) mg/dL AST 20 (14-36) IU/L ALT 12 (<35) IU/L Alkaline Phosphatase 38 (38-126) U/L Total Protein 6.6 (6.3-8.2) g/dL Albumin 4.0 (3.5-5.0) g/dL Globulin 2.6 (1.7-4.1) g/dL Albumin/Globulin Ratio 1.5 (1.0-2.8) Lipase 67 (23-300) U/L HCG, Quant 4356.2 mIU/mL Serum , Qual (Negative) Point of care testing: Urine Dip Bedside Urine Glucose Negative Bedside Urine Bilirubin - Negative Bedside Urine Ketone ++ 40 Urine Specific [place] 1.015 Bedside Urine Occult Blood - Negative Bedside Urine pH 6.0 Bedside Urine Protein - Negative Bedside Urine Urobilinogen - Negative Bedside Urine Nitrite - Negative Bedside Urine Leukocytes - Negative Esterase Discharge Plan Departure Patient Disposition: Home Clinical Impression: Syncope, vasovagal Qualifiers: Weeks of gestation: less than 8 weeks Qualified Code(s): Z3A.01 - Less than 8 weeks gestation of Instructions: Common Discomforts and Bodily Changes During , Fainting
[2019-03-18] MEDS: ONDANSETRON 4 MG/2 ML INJ IV (22:12)
[2019-03-18 22:40] VITALS: BP 99/45; PULSE 51; O2SAT 99
[2019-03-18 23:06] LABS: HCG Quantitative /Beta subunit 4356.2 mIU/mL
[2019-03-18 23:48] VITALS: BP 98/58; PULSE 74; RESP 15; O2SAT 100
--- NOTE | 2019-03-18 23:50 | PC.NURSE ---
No IV placed in right forearm, Possible charted on the wrong patient by another nurse. Patient showed this nurse her arms and only 1 IV placed in left AC
== END 2019-03-18 23:51 | disposition home or self-care (01) ==
PROVIDERS: Emergency Provider Emergency Medicine
DX: R55 Syncope and collapse (principal); Z32.01 Encounter for pregnancy test, result positive; Z3A.01 Less than 8 weeks gestation of pregnancy
CPT/HCPCS: 36415; 80053; 81003; 83690; 84702; 84703; 85025; 85610; 85730; 93005; 93010; 96374; 99284; J2405

== ENCOUNTER 2019-09-24 17:50 | Emergency (ER) | payer OTHER, MEDICAID, SELFPAY ==
--- NOTE | 2019-09-24 17:56 | DI.RAD.S_ITS ---
PROCEDURE: XR FINGER LT MIN 2V INDICATIONS: glf, lt 4th digit pain TECHNIQUE: AP hand, 2 views of the 3 finger(s) acquired. COMPARISON: None. FINDINGS: Bones: No fractures or dislocations. No suspicious bony lesions. Soft tissues: No suspicious soft tissue calcifications. IMPRESSION: No acute finding. Dictated by: Eddy Yeboah M.D. on 09/25/2019 at 8:04 Approved by: Eddy Yeboah M.D. on 09/25/2019 at 8:12
[2019-09-24 18:01] VITALS: BP 130/77; PULSE 89; RESP 22; TEMP 37.1; O2SAT 100
--- NOTE | 2019-09-24 18:16 | ED.UPPEXIN ---
HPI - Extremity Injury (Upper) <NANCIE Jon - Last Filed: 09/24/19 20:57> General Chief Complaint: Extremity Injury, Upper Stated Complaint: LEFT HAND RING FINGER INJURY Time Seen by Provider: 09/24/19 18:04 Source: patient Mode of arrival: Ambulatory Limitations: no limitations History of Present Illness HPI narrative: The patient is a 24-year-old female nonsmoker who denies any pertinent medical history who presents with a chief complaint of a 4th digit left hand injury. She states that she does not know exactly what happened, but [place] and [place], landing on her finger. She states that ?normally I am not a pussy, but this really hurts.She has not taken any Tylenol, Motrin or applied any ice. Related Data Allergies Allergy/AdvReac Type Severity Reaction Status Date / Time clindamycin [CLINDAMYCIN] Allergy Intermediate hot and Verified 03/18/19 21:54 itchy Penicillins [PENICILLINS] Allergy Intermediate severe Verified 03/18/19 21:54 hives Review of Systems <NANCIE Jon - Last Filed: 09/24/19 20:57> Review of Systems Narrative: GENERAL: Denies chills, fatigue, malaise, fever, sweats. HEENT: Denies sinus pain, ear pain, sore throat, difficulty swallowing, dizziness. RESPIRATORY: Denies dyspnea, cough, wheezing, hemoptysis, sputum. CARDIOVASCULAR: Denies chest pain, palpitations, orthopnea, edema, GASTROINTESTINAL: Denies nausea, vomiting, abdominal pain, diarrhea, constipation, melena. : Denies dysuria, frequency, incontinence, hematuria, urinary retention. MUSCULOSKELETAL: See HPI SKIN: Denies rash, skin lesions, or other NEUROLOGIC: Denies weakness, headache, numbness, change in speech, confusion, seizures, incoordination. PSYCHIATRIC: No concerning psychosocial issues. 12 point review of systems is negative except for those stated above Patient History <NANCIE Jon - Last Filed: 09/24/19 20:57> Medical History Intermittent right upper quadrant abdominal pain (Acute) Surgical History H/O lymph node excision (Resolved) Social History Smoking Status: Never smoker alcohol intake: never substance use type: does not use Smoking Status: Never smoker alcohol intake frequency: 0-2 drinks per day Substance Use Type: does not use Exam <NANCIE Jon - Last Filed: 09/24/19 20:57> Narrative Exam Narrative: GENERAL: This is a well-nourished, well-developed patient, in no acute distress HEAD: Atraumatic. Normocephalic. No temporal or scalp tenderness. EYES: Pupils equal round and reactive. Extraocular motions intact. No scleral icterus. No injection or drainage. ENT: Nose without bleeding, purulent drainage or septal hematoma. Airway patent. NECK: Trachea midline. No JVD or lymphadenopathy. Supple, nontender, no meningeal signs. CARDIOVASCULAR: Regular rate and rhythm RESPIRATORY: No cough. No increased respiratory effort. No accessory muscle use EXTREMITIES: Slight swelling and pain to palpation left hand, 4th finger. No lacerations or abrasions noted. Able to flex and extend against resistance, though decreased range of motion all madden BACK: Nontender without deformity or crepitance. No flank tenderness. NEURO: AOx3. SKIN: No rash or erythema on visible skin Initial Vital Signs Initial Vital Signs: Vital Signs Temperature 98.8 F 09/24/19 18:01 Pulse Rate 89 09/24/19 18:01 Respiratory Rate 22 09/24/19 18:01 Blood Pressure 130/77 09/24/19 18:01 Pulse Oximetry 100 09/24/19 18:01 <Rajinder Milan DO - Last Filed: 09/24/19 22:20> Initial Vital Signs Initial Vital Signs: Vital Signs Temperature 98.8 F 09/24/19 18:01 Pulse Rate 89 09/24/19 18:01 Respiratory Rate 22 09/24/19 18:01 Blood Pressure 130/77 09/24/19 18:01 Pulse Oximetry 100 09/24/19 18:01 Procedures <NANCIE Jon - Last Filed: 09/24/19 20:57> Orthopedic Splinting/Casting Injury #1: Side: left Upper Extremity Injury Location: finger Upper Extremity Immobilizer: aluminum form splint Post splinting neuro exam: intact Post splinting vascular exam: intact Placed by: Nursing Course <NANCIE Jon - Last Filed: 09/24/19 20:57> Orders Ordered: ED Orders 09/24/19 17:56 XR finger LT min 2V Stat Discontinued Medications Ibuprofen (Advil) 800 mg PO NOW ONE Stop: 09/24/19 18:28 Last Admin: 09/24/19 18:32 Dose: 800 mg Documented by: DERIAN Ketorolac Tromethamine (Toradol) 60 mg IM NOW ONE Stop: 09/24/19 18:27 Last Admin: 09/24/19 18:35 Dose: Not Given Documented by: DERIAN Vital Signs Vital signs: Vital Signs - 8 hr 09/24/19 18:01 Temperature 98.8 F Pulse Rate 89 Respiratory Rate 22 Blood Pressure 130/77 Pulse Oximetry 100 <Rajinder Milan DO - Last Filed: 09/24/19 22:20> Orders Ordered: ED Orders 09/24/19 17:56 XR finger LT min 2V Stat Discontinued Medications Ibuprofen (Advil) 800 mg PO NOW ONE Stop: 09/24/19 18:28 Last Admin: 09/24/19 18:32 Dose: 800 mg Documented by: DERIAN Ketorolac Tromethamine (Toradol) 60 mg IM NOW ONE Stop: 09/24/19 18:27 Last Admin: 09/24/19 18:35 Dose: Not Given Documented by: DERIAN Vital Signs Vital signs: Vital Signs - 8 hr 09/24/19 18:01 Temperature 98.8 F Pulse Rate 89 Respiratory Rate 22 Blood Pressure 130/77 Pulse Oximetry 100 [facility] - Extremity Injury (Upper) <NANCIE Jon - Last Filed: 09/24/19 20:57> Imaging Data Extremity x-ray #1: Radiologist's Impression: Room radiology read: Question nondisplaced fracture at the base of the 4th distal phalanx. Only seen on lateral image. [facility] Narrative Medical decision making narrative: The patient is a 24-year-old female who presents with a chief complaint of left 4th digit pain. She has a possible fracture on x-ray, correlating with her pain and swelling on exam. She is neuro vascularly intact throughout her stay in the emergency department. She was placed in a finger splint accordingly. I discussed at length rest ice compression elevation as well as [id number] pain medications as needed and able. The patient was offered a Toradol injection in the emergency department which she declined. Patient has no questions or concerns upon discharge and states understanding of return precautions any acute concerns as well as follow-up care with primary care provider. Discharge Plan Departure Patient Disposition: Home Clinical Impression: Finger pain, left Discharge Date/Time: 09/24/19 19:53 Instructions: DI for Finger Fracture, DI for Finger Sprain, How To Perform RICE (Rest, Ice, Compress, Elevate) Activity Restrictions/Additional Instructions: Thank you for trusting us with your care today As I discussed, one view of x-rays concerning for a possible fracture. Please use rest ice compression elevation as well as [id number] pain medications as needed and able Please follow-up with primary care provider in the next few days Please come back to the emergency department for any acute concerns Stand Alone Forms: Work Release Note <Rajinder Milan, DO - Last Filed: 09/24/19 22:20> Cosign ED Attending Cosignature Attestation: Dr Milan Co-Sign Statement: I was available for consultation during this patient's emergency department visit. This chart is signed by myself for administrative purposes only. I did not have direct contact with this patient during this visit. They were seen independently by the APC.
[2019-09-24] MEDS: IBUPROFEN 400 MG TABLET 800 MG PO (18:32)
== END 2019-09-24 19:53 | disposition home or self-care (01) ==
PROVIDERS: Emergency Provider Nurse Practitioner Family
DX: M79.645 Pain in left finger(s) (principal); W19.XXXA Unspecified fall, initial encounter
CPT/HCPCS: 73140; 99282; 99283

== ENCOUNTER 2020-04-04 15:57 | Emergency (ER) | payer OTHER, MEDICAID, SELFPAY ==
[2020-04-04 16:11] VITALS: BP 114/67; PULSE 109; RESP 22; TEMP 37.9; O2SAT 96; BMI 23.6
--- NOTE | 2020-04-04 16:19 | DI.RAD.S_ITS ---
PROCEDURE: XR CHEST 1V INDICATIONS: suspected sepsis TECHNIQUE: One view of the chest was acquired. COMPARISON: [facility], , XR CHEST 1 VIEW, 03/24/2020, 13:38. FINDINGS: Surgical changes and devices: None. Lungs and pleura: Lungs are clear. No pleural effusions or pneumothorax. Mediastinum: Mediastinal contours appear normal. Heart size is normal. Bones and chest wall: No suspicious bony lesions. Overlying soft tissues appear unremarkable. IMPRESSION: Normal portable chest, without focal infiltrates. Dictated by: Aniket Larkin M.D. on 04/04/2020 at 16:00 Approved by: Aniket Larkin M.D. on 04/04/2020 at 16:00
--- NOTE | 2020-04-04 16:27 | ED_ITS ---
HPI - Sepsis General Chief Complaint: Abdominal Pain Mode of arrival: Ambulatory Source: patient Limitations: no limitations Evaluation Sepsis Screen: Possible Sepsis Risk Sepsis Infection Criteria Present: Suspected New Infection Associated Symptoms: fever, chills, nausea and abdominal pain Narrative: 24-year-old female nonsmoker with noncontributory medical history presents with fever, chills and general malaise over the course of the day. She states her symptoms actually started yesterday. Over that time frame she has developed increasing right lower quadrant pain. She denies headache, runny nose, sneezing, coughing, sore throat, chest pain or shortness of breath. Her abdominal pain is worse with motion and improves with rest. She had denies any vaginal bleeding or discharge. She was seen and evaluated at an outside facility earlier today in was told she had a urinary tract infection, she was given a prescription for antibiotics which she has yet to fill Review of Systems Constitutional Constitutional: Reports body ache(s), Reports chills, Denies fatigue, Reports fever(s), Denies frequent falls, Reports lethargy and Denies weakness Eyes Eyes: Denies change in vision, Denies eye discharge, Denies irritation and Denies loss of vision ENT Ears, Nose, Mouth, and Throat: Denies change in voice, Denies dizziness, Denies neck pain, Denies sore throat and Denies throat swelling Cardiovascular Cardiovascular: Denies chest pain, Denies irregular heart rhythm, Denies lightheadedness, Denies palpitations, Denies dyspnea, Denies dyspnea on exertion and Denies orthopnea Respiratory Respiratory: Denies cough, Denies dyspnea, Denies dyspnea on exertion and Denies wheezing Gastrointestinal Gastrointestinal: Reports abdominal pain, Denies change in bowel habits, Denies diarrhea, Reports nausea and Denies vomiting Musculoskeletal Musculoskeletal: Denies neck pain and Denies numbness Integumentary/Breasts Skin/Breast: Denies pruritus, Denies erythema, Denies rash and Denies wounds Neurologic Neurologic: Denies behavioral changes, Denies confusion, Denies dizziness, Denies frequent falls, Denies loss of vision, Denies numbness and Denies weakness Psychiatric Psychiatric: Denies anxiety, Denies behavioral changes, Denies confusion, Denies depression, Denies homicidal ideation and Denies suicidal ideation Endocrine Endocrine: Denies fatigue, Denies flushing and Denies palpitations Hematologic/Lymphatic Hematologic/Lymphatic: Denies easy bruising Allergic/Immunologic Allergic/Immunologic: Denies urticaria, Denies throat swelling and Denies wheezing Patient History Medical History Intermittent right upper quadrant abdominal pain Surgical History H/O lymph node excision Social History Smoking Status: Never smoker alcohol intake: never substance use type: does not use Smoking Status: Never smoker alcohol intake frequency: 0-2 drinks per day Substance Use Type: does not use Exam Narrative Exam Narrative: GENERAL: [24] year old patient appears stated age. Well- nourished, well-developed patient, in mild distress. Clearly not feeling well HEAD: Atraumatic. Normocephalic. EYES: Pupils equal round and reactive. Extraocular motions intact. No scleral icterus. No injection or drainage. ENT: Nose without bleeding, purulent drainage. Throat without erythema, tonsillar hypertrophy or exudate. Airway patent. NECK: Trachea midline. Non tender CARDIOVASCULAR: Regular rate and rhythm without murmurs, gallops, or rubs. RESPIRATORY: Clear to auscultation. Breath sounds equal bilaterally. No wheezes, rales, or rhonchi. GASTROINTESTINAL: Abdomen soft, tender in the right lower quadrant, no rebound, negative Rovsing's, positive heel tap, nondistended. EXTREMITIES: No edema or joint tenderness. BACK: Nontender without deformity or crepitance. No flank tenderness. NEURO: AOx3. SKIN: No rash or erythema of visible areas Initial Vital Signs Initial Vital Signs: Vital Signs Temperature 100.3 F H 04/04/20 16:11 Pulse Rate 109 H 04/04/20 16:11 Respiratory Rate 22 04/04/20 16:11 Blood Pressure 114/67 04/04/20 16:11 Pulse Oximetry 96 04/04/20 16:11 Course Course Course Narrative: Patient with fever and chills as well as right lower quadrant pain was diagnosed with UTI earlier in the day, however urine is clear here. Ultrasound shows no evidence of tubo-ovarian abscess or other abnormality, CT of the abdomen and pelvis with IV contrast is able to visualize the appendix and shows no signs of appendicitis but does note inflamed nodes in the right lower quadrant consistent with mesenteric adenitis. Labs are reassuring, vitals are stable, she has no upper respiratory complaints. COVID is negative. Return precautions given, questions answered to her apparent satisfaction. She was encouraged to continue taking the antibiotics as prescribed earlier given the apparent abnormal urine findings Orders Ordered: Discontinued Medications Acetaminophen (Acetaminophen 325 Mg Tablet) 975 mg PO NOW ONE Stop: 04/04/20 16:53 Last Admin: 04/04/20 16:55 Dose: 975 mg Documented by: CHANG Sodium Chloride (Normal Saline 0.9%) 1,000 mls @ 1,000 mls/hr IV BOLUS ONE Stop: 04/04/20 17:17 Last Admin: 04/04/20 16:34 Dose: Not Given Documented by: MILO Lactated Ringer's (Lactated Ringers) 1,986.72 mls @ 662.24 mls/hr 30 ml/kg infuse over 3 hr (1986.72 ml) IV NOW ONE Stop: 04/04/20 19:27 Last Infusion: 04/04/20 19:48 Dose: 662 mls/hr Documented by: Admin: 04/04/20 16:53 Dose: 662.24 mls/hr Documented by: CHANG Ibuprofen (Ibuprofen 400 Mg Tablet) 800 mg PO NOW ONE Stop: 04/04/20 16:53 Last Admin: 04/04/20 16:55 Dose: 800 mg Documented by: CHANG Vital Signs Vital signs: Vital Signs - 8 hr 04/04/20 16:11 04/04/20 16:55 04/04/20 18:49 Temperature 100.3 F H 103 F H 99.4 F Pulse Rate 109 H 57 L Respiratory Rate 22 18 Blood Pressure 114/67 110/52 L Pulse Oximetry 96 96 04/04/20 18:50 04/04/20 19:54 Temperature 99.4 F 98.2 F Pulse Rate 64 Respiratory Rate 18 Blood Pressure 105/53 L Pulse Oximetry 97 MDM - Sepsis Lab Data Result diagrams: 04/04/20 16:46 04/04/20 16:46 Labs: Lab Results 04/04/20 04/04/20 04/04/20 Range/Units 16:46 16:46 16:46 WBC 10.2 (4.5-11.0) X10^3/uL RBC 4.29 (4.0-5.2) X10^6/uL Hgb 12.7 (12.0-16.0) g/dL Hct 38.3 (36-46) % MCV 89.4 (80-100) fL MCH 29.7 (26-34) PG MCHC 33.2 (30-36) % RDW 13.5 (11.6-14.8) % Plt Count 223 (150-400) X10^3/uL Neut % (Auto) 86.7 H (50-75) % Lymph % (Auto) 6.6 L (25-40) % [place] % (Auto) 6.4 (3-14) % Eos % (Auto) 0.1 L (2-4) % Baso % (Auto) 0.2 (0-2) % Neut # (Auto) 8800 H (4525-5683) /uL Lymph # (Auto) 700 L (1574-2801) /uL [place] # (Auto) 700 (0-900) /uL Eos # (Auto) 0 (0-450) /uL Baso # (Auto) 0 (0-100) /uL PT 14.1 H (10.1-12.7) SECONDS INR 1.2 (0.9-1.3) APTT 29 (26.4-36.2) SECONDS Sodium (137-145) mmol/L Potassium (3.4-5.1) mmol/L Chloride (98-107) mmol/L Carbon Dioxide (22-32) mmol/L BUN (7-17) mg/dL Creatinine (0.52-1.04) mg/dL Estimated GFR (>60) mL/min BUN/Creatinine Ratio (6-22) Glucose (70-100) mg/dL Lactate (0.7-2.1) mmol/L Calcium (8.4-10.2) mg/dL Total Bilirubin (0.2-1.3) mg/dL AST (14-36) IU/L ALT (<35) IU/L Alkaline Phosphatase (38-126) U/L Total Protein (6.3-8.2) g/dL Albumin (3.5-5.0) g/dL Globulin (1.7-4.1) g/dL Albumin/Globulin Ratio (1.0-2.8) Lipase (23-300) U/L Procalcitonin < 0.05 (<0.5) ng/mL Urine RBC (0-5/HPF) Urine WBC (0-5/HPF) Ur Squamous Epith Cells (0-5/HPF) Urine Bacteria (None) Ur Culture Indicated? SARS-CoV-2 (PCR) (Negative) 04/04/20 04/04/20 04/04/20 Range/Units 16:46 16:46 16:46 WBC (4.5-11.0) X10^3/uL RBC (4.0-5.2) X10^6/uL Hgb (12.0-16.0) g/dL Hct (36-46) % MCV (80-100) fL MCH (26-34) PG MCHC (30-36) % RDW (11.6-14.8) % Plt Count (150-400) X10^3/uL Neut % (Auto) (50-75) % Lymph % (Auto) (25-40) % [place] % (Auto) (3-14) % Eos % (Auto) (2-4) % Baso % (Auto) (0-2) % Neut # (Auto) (3141-9430) /uL Lymph # (Auto) (1253-6069) /uL [place] # (Auto) (0-900) /uL Eos # (Auto) (0-450) /uL Baso # (Auto) (0-100) /uL PT (10.1-12.7) SECONDS INR (0.9-1.3) APTT (26.4-36.2) SECONDS Sodium 134 L (137-145) mmol/L Potassium 3.7 (3.4-5.1) mmol/L Chloride 102 (98-107) mmol/L Carbon Dioxide 23 (22-32) mmol/L BUN 8 (7-17) mg/dL Creatinine 0.62 (0.52-1.04) mg/dL Estimated GFR > 60.0 (>60) mL/min BUN/Creatinine Ratio 12.9 (6-22) Glucose 110 H (70-100) mg/dL Lactate 0.7 (0.7-2.1) mmol/L Calcium 9.0 (8.4-10.2) mg/dL Total Bilirubin 0.3 (0.2-1.3) mg/dL AST 26 (14-36) IU/L ALT 17 (<35) IU/L Alkaline Phosphatase 47 (38-126) U/L Total Protein 7.5 (6.3-8.2) g/dL Albumin 4.2 (3.5-5.0) g/dL Globulin 3.3 (1.7-4.1) g/dL Albumin/Globulin Ratio 1.3 (1.0-2.8) Lipase 57 (23-300) U/L Procalcitonin (<0.5) ng/mL Urine RBC (0-5/HPF) Urine WBC (0-5/HPF) Ur Squamous Epith Cells (0-5/HPF) Urine Bacteria (None) Ur Culture Indicated? SARS-CoV-2 (PCR) Negative (Negative) 04/04/20 Range/Units 17:45 WBC (4.5-11.0) X10^3/uL RBC (4.0-5.2) X10^6/uL Hgb (12.0-16.0) g/dL Hct (36-46) % MCV (80-100) fL MCH (26-34) PG MCHC (30-36) % RDW (11.6-14.8) % Plt Count (150-400) X10^3/uL Neut % (Auto) (50-75) % Lymph % (Auto) (25-40) % [place] % (Auto) (3-14) % Eos % (Auto) (2-4) % Baso % (Auto) (0-2) % Neut # (Auto) (9538-1148) /uL Lymph # (Auto) (4327-0411) /uL [place] # (Auto) (0-900) /uL Eos # (Auto) (0-450) /uL Baso # (Auto) (0-100) /uL PT (10.1-12.7) SECONDS INR (0.9-1.3) APTT (26.4-36.2) SECONDS Sodium (137-145) mmol/L Potassium (3.4-5.1) mmol/L Chloride (98-107) mmol/L Carbon Dioxide (22-32) mmol/L BUN (7-17) mg/dL Creatinine (0.52-1.04) mg/dL Estimated GFR (>60) mL/min BUN/Creatinine Ratio (6-22) Glucose (70-100) mg/dL Lactate (0.7-2.1) mmol/L Calcium (8.4-10.2) mg/dL Total Bilirubin (0.2-1.3) mg/dL AST (14-36) IU/L ALT (<35) IU/L Alkaline Phosphatase (38-126) U/L Total Protein (6.3-8.2) g/dL Albumin (3.5-5.0) g/dL Globulin (1.7-4.1) g/dL Albumin/Globulin Ratio (1.0-2.8) Lipase (23-300) U/L Procalcitonin (<0.5) ng/mL Urine RBC None seen (0-5/HPF) Urine WBC None seen (0-5/HPF) Ur Squamous Epith Cells 0-1 /hpf (0-5/HPF) Urine Bacteria None seen (None) Ur Culture Indicated? Cult not indicated SARS-CoV-2 (PCR) (Negative) Point of Care Testing Test Results Negative Urine Dip Bedside Urine Glucose Negative Bedside Urine Bilirubin - Negative Bedside Urine Ketone + 15 Urine Specific [place] 1.010 Bedside Urine Occult Blood +/- Bedside Urine pH 6 Bedside Urine Protein - Negative Bedside Urine Urobilinogen - Negative Bedside Urine Nitrite - Negative Bedside Urine Leukocytes - Negative Esterase Imaging Data CT scan - abdomen/pelvis: Radiologist's Impression: [address] [id number] Scan ReportSigned Patient: Eli Crawford EMR#: [id number]: 1995Acct:[id number]/Sex: 24 / FDate of Service: 04/04/20Loc: EDAccession Number: [id number] Procedure: CT abdomen pelvis w con Ordering Provider: Ryan Marsh D.O. PROCEDURE: CT ABDOMEN PELVIS W CON INDICATIONS: severe RLQ pain TECHNIQUE: After the administration of intravenous contrast, 5 mm thick sections acquired from the diaphragm to the symphysis. 5 mm coronal and sagittal reformats were acquired. For radiation dose reduction, the following was used: automated exposure control, adjustment of mA and/or kV according to patient size. COMPARISON: [facility], US, US PELVIC COMPLETE, 04/04/2020, 18:14. [facility], CT, CT ABDOMEN PELVIS W CON, 02/18/2018, 20:40. FINDINGS: Image quality: Excellent. ABDOMEN: Lung bases: Lung bases are clear. Heart size is normal. Solid organs: Liver is normal in size and enhancement. Gallbladder is within normal limits. Biliary system is non dilated. Pancreas enhances normally. Spleen is normal in size and enhancement. No adrenal nodules. Kidneys demonstrate normal size and enhancement, without hydronephrosis. Peritoneum and bowel: Bowel loops demonstrate normal wall thickness and caliber. No free fluid or air. Appendix is visualized in right lower quadrant and is normal in size. No gross appendiceal wall thickening or periappendiceal fat stranding is seen. Nodes and vessels: No retroperitoneal or mesenteric adenopathy by size criteria. Small lymph nodes are seen in right lower quadrant mesentery and measures up to 6 millimeters in short axis diameter. Aorta and inferior vena cava are normal in size. Miscellaneous: No ventral hernias. PELVIS: Genitourinary: Bladder wall thickness is normal. Miscellaneous: No inguinal hernias or adenopathy. Uterus and bilateral ovaries show no gross abnormality. Mildly prominent bilateral gonadal vessels are noted. Bones: No suspicious bony lesions. No vertebral body compression fractures. IMPRESSION: 1. No evidence of acute appendicitis. No bowel obstruction. Mildly prominent lymph nodes seen in right lower quadrant mesentery which could Remicade mesenteric adenitis. No free fluid or free air. 2. No renal stone or hydronephrosis. 3. Mildly prominent vessel seen in bilateral adnexa which can be seen in the case of pelvic congestion syndrome. Clinical correlation is recommended. No gross enlarged vessels are seen on pelvic ultrasound study from the same day. Dictated by: Maldonado Pace M.D. on 04/04/2020 at 18:56 Approved by: Maldonado Pace M.D. on 04/04/2020 at 19:07 US - SCHOOL ADJUSTMENT COUNSELOR: Radiologist's Impression: Chart Viewer Diagnostics DATE TYPE STATUS REF RANGE/AUTHOR Hx Today 18:27 Maldonado Pace Today 17:42 Maldonado Pace Today 16:19 Aniket Larkin 09/24/19 17:56 Eddy Yeboah 02/18/18 20:36 Shaw Billingsley 02/18/18 19:46 Shaw Billingsley Courtney E 24, F0 1995 [facility] ER, [facility] ED 167.64cm 66.224kg BMI: 23.6kg/m? Abdominal Pain Search Chart No Data to Display No Data to Display hot and itchy severe hives ONSET Today 19:54 Eli rCawford 24 F [address] [id number] ReportSigned Patient: Eli Crawford EMR#: [id number]: 1995Acct:[id number]/Sex: te of Service: 04/04/20Loc: EDAccession Number: [id number] Procedure: US pelvic complete Ordering Provider: Ryan Marsh D.O. PROCEDURE: US PELVIC COMPLETE INDICATIONS: RIGHT LOWER QUADRANT PAIN TECHNIQUE: Real-time scanning was performed of the pelvic organs, with image documentation. Additional endovaginal scanning was necessary due to incomplete visualization of the adnexal and endometrial structures by transabdominal scanning. COMPARISON: None. FINDINGS: Transabdominal scanning: Limited scanning through the kidneys shows no hydronephrosis. No pathologic free abdominal or pelvic fluid. Endovaginal scanning: Uterus: Uterus is enlarged in size at 9.9 x 4.4 x 6.9 cm. The endometrium measures 19 mm in combined thickness. No endometrial mass or fluid is seen. No discrete uterine fibroid is noted. Ovaries: Right ovary measures 2.7 x 2.5 x 2.2 cm in size. Left ovary measures 2.7 x 2.3 x 2.3 cm in size. No solid appearing ovarian lesion. Normal blood flow is seen in bilateral ovaries on color Doppler images. Less than 12 follicles are seen in bilateral ovaries. IMPRESSION: Normal appearing bilateral ovaries. Slightly enlarged uterus. No discrete uterine fibroid is seen. No endometrial mass or fluid. No finding to explain patient's symptoms. Dictated by: Maldonado Pace M.D. on 04/04/2020 at 18:45 Chest x-ray: Radiologist's Impression: Eli Crawford F [address] [id number] ReportSigned Patient: Eli Crawford EMR#: [id number]: 1995Acct:[id number]/Sex: 24 / FDate of Service: 04/04/20Loc: EDAccession Number: [id number] Procedure: XR chest 1V Ordering Provider: Ryan Marsh D.O. PROCEDURE: XR CHEST 1V INDICATIONS: suspected sepsis TECHNIQUE: One view of the chest was acquired. COMPARISON: [facility], , XR CHEST 1 VIEW, 03/24/2020, 13:38. FINDINGS: Surgical changes and devices: None. Lungs and pleura: Lungs are clear. No pleural effusions or pneumothorax. Mediastinum: Mediastinal contours appear normal. Heart size is normal. Bones and chest wall: No suspicious bony lesions. Overlying soft tissues appear unremarkable. IMPRESSION: Normal portable chest, without focal infiltrates. Dictated by: Aniket Larkin M.D. on 04/04/2020 at 16:00 Approved by: Aniket Larkin M.D. on 04/04/2020 at 16:00 Discharge Plan Departure Patient Disposition: Home Clinical Impression: Right lower quadrant abdominal pain, Mesenteric adenitis Instructions: DI for Mesenteric Adenitis-Adult Activity Restrictions/Additional Instructions: *You have been diagnosed with [acute mesenteric adenitis] *What to do: *Take medications as directed: Tylenol or Motrin for aches and pains. Antibiotics are not indicated *Follow up with your primary care provider in 2-3 days, call for an appointment. Let them know you were seen in the Emergency Department and that we ask that you be seen in follow up *Return to ER if you should have any new, worsening or concerning symptoms
[2020-04-04] MEDS: LACTATED RINGERS 662.24 ML IV (16:53)
[2020-04-04 16:54] LABS: Add Manual Diff / Slide Review NO; Basophils Absolute Auto 0 /uL (0-100); Basophils Percent Auto 0.2 % (0-2); Eosinophils Absolute Auto 0 /uL (0-450); Eosinophils Percent Auto 0.1 % (2-4); Hematocrit 38.3 % (36-46); Hemoglobin 12.7 g/dL (12.0-16.0); Lymphocytes Absolute Auto 700 /uL (1100-4500); Lymphocytes Percent Auto 6.6 % (25-40); Mean Corpuscular HGB Conc 33.2 % (30-36); Mean Corpuscular Hemoglobin 29.7 PG (26-34); Mean Corpuscular Volume 89.4 fL (80-100); Monocytes Absolute Auto 700 /uL (0-900); Monocytes Percent Auto 6.4 % (3-14); Neutrophils Absolute Auto 8800 /uL (1500-7000); Neutrophils Percent Auto 86.7 % (50-75); Platelet Count 223 X10^3/uL (150-400); Red Blood Cell Count 4.29 X10^6/uL (4.0-5.2); Red Cell Distribution Width 13.5 % (11.6-14.8); White Blood Cell Count 10.2 X10^3/uL (4.5-11.0)
[2020-04-04 16:55] VITALS: TEMP 39.4
[2020-04-04] MEDS: ACETAMINOPHEN 325 MG TABLET 975 MG PO (16:55)
[2020-04-04] MEDS: IBUPROFEN 400 MG TABLET 800 MG PO (16:55)
[2020-04-04 17:14] LABS: INR 1.2 (0.9-1.3); Prothrombin Time 14.1 SECONDS (10.1-12.7)
[2020-04-04 17:17] LABS: PTT Partial Thromboplastin Tim 29 SECONDS (26.4-36.2)
[2020-04-04 17:28] LABS: COVID19 -Nasal RAPID Negative (Negative)
--- NOTE | 2020-04-04 17:42 | DI.US.S_ITS ---
PROCEDURE: US PELVIC COMPLETE INDICATIONS: RIGHT LOWER QUADRANT PAIN TECHNIQUE: Real-time scanning was performed of the pelvic organs, with image documentation. Additional endovaginal scanning was necessary due to incomplete visualization of the adnexal and endometrial structures by transabdominal scanning. COMPARISON: None. FINDINGS: Transabdominal scanning: Limited scanning through the kidneys shows no hydronephrosis. No pathologic free abdominal or pelvic fluid. Endovaginal scanning: Uterus: Uterus is enlarged in size at 9.9 x 4.4 x 6.9 cm. The endometrium measures 19 mm in combined thickness. No endometrial mass or fluid is seen. No discrete uterine fibroid is noted. Ovaries: Right ovary measures 2.7 x 2.5 x 2.2 cm in size. Left ovary measures 2.7 x 2.3 x 2.3 cm in size. No solid appearing ovarian lesion. Normal blood flow is seen in bilateral ovaries on color Doppler images. Less than 12 follicles are seen in bilateral ovaries. IMPRESSION: Normal appearing bilateral ovaries. Slightly enlarged uterus. No discrete uterine fibroid is seen. No endometrial mass or fluid. No finding to explain patient's symptoms. Dictated by: Maldoando Pace M.D. on 04/04/2020 at 18:45 Approved by: Maldonado Pace M.D. on 04/04/2020 at 18:46
[2020-04-04 17:46] LABS: Alanine Aminotransferase 17 IU/L (<35); Albumin 4.2 g/dL (3.5-5.0); Albumin Globulin Ratio 1.3 (1.0-2.8); Alkaline Phosphatase 47 U/L (38-126); Aspartate Aminotransferase 26 IU/L (14-36); BUN Creatinine Ratio 12.9 (6-22); Bilirubin Total 0.3 mg/dL (0.2-1.3); Blood Urea Nitrogen 8 mg/dL (7-17); Carbon Dioxide 23 mmol/L (22-32); Chloride 102 mmol/L (98-107); Estimated Glomerular Filt Rate > 60.0 mL/min (>60); Globulin 3.3 g/dL (1.7-4.1); Glucose 110 mg/dL (70-100); HEMOLYSIS < 15 (0-50); Lactate (Lactic Acid) 0.7 mmol/L (0.7-2.1); Lipase 57 U/L (23-300); Potassium 3.7 mmol/L (3.4-5.1); Sodium 134 mmol/L (137-145); Total Protein 7.5 g/dL (6.3-8.2)
[2020-04-04 17:49] LABS: Bacteria Urine None Seen; RBC Urine None Seen (0-5/HPF); WBC Urine None Seen (0-5/HPF)
[2020-04-04 18:17] LABS: Culture Indicated Urine Cult Not Indicated; Squamous Epithelial Cell Urine 0-1 /HPF (0-5/HPF)
[2020-04-04 18:24] LABS: Procalcitonin < 0.05 ng/mL (<0.5)
--- NOTE | 2020-04-04 18:27 | DI.CT.S_ITS ---
PROCEDURE: CT ABDOMEN PELVIS W CON INDICATIONS: severe RLQ pain TECHNIQUE: After the administration of intravenous contrast, 5 mm thick sections acquired from the diaphragm to the symphysis. 5 mm coronal and sagittal reformats were acquired. For radiation dose reduction, the following was used: automated exposure control, adjustment of mA and/or kV according to patient size. COMPARISON: [facility], US, US PELVIC COMPLETE, 04/04/2020, 18:14. [facility], CT, CT ABDOMEN PELVIS W CON, 02/18/2018, 20:40. FINDINGS: Image quality: Excellent. ABDOMEN: Lung bases: Lung bases are clear. Heart size is normal. Solid organs: Liver is normal in size and enhancement. Gallbladder is within normal limits. Biliary system is non dilated. Pancreas enhances normally. Spleen is normal in size and enhancement. No adrenal nodules. Kidneys demonstrate normal size and enhancement, without hydronephrosis. Peritoneum and bowel: Bowel loops demonstrate normal wall thickness and caliber. No free fluid or air. Appendix is visualized in right lower quadrant and is normal in size. No gross appendiceal wall thickening or periappendiceal fat stranding is seen. Nodes and vessels: No retroperitoneal or mesenteric adenopathy by size criteria. Small lymph nodes are seen in right lower quadrant mesentery and measures up to 6 millimeters in short axis diameter. Aorta and inferior vena cava are normal in size. Miscellaneous: No ventral hernias. PELVIS: Genitourinary: Bladder wall thickness is normal. Miscellaneous: No inguinal hernias or adenopathy. Uterus and bilateral ovaries show no gross abnormality. Mildly prominent bilateral gonadal vessels are noted. Bones: No suspicious bony lesions. No vertebral body compression fractures. IMPRESSION: 1. No evidence of acute appendicitis. No bowel obstruction. Mildly prominent lymph nodes seen in right lower quadrant mesentery which could Remicade mesenteric adenitis. No free fluid or free air. 2. No renal stone or hydronephrosis. 3. Mildly prominent vessel seen in bilateral adnexa which can be seen in the case of pelvic congestion syndrome. Clinical correlation is recommended. No gross enlarged vessels are seen on pelvic ultrasound study from the same day. Dictated by: Maldonado Pace M.D. on 04/04/2020 at 18:56 Approved by: Maldonado Pace M.D. on 04/04/2020 at 19:07
[2020-04-04 18:49] VITALS: BP 110/52; PULSE 57; RESP 18; TEMP 37.4; O2SAT 96
[2020-04-04 18:50] VITALS: TEMP 37.4
[2020-04-04 19:54] VITALS: BP 105/53; PULSE 64; RESP 18; TEMP 36.8; O2SAT 97
== END 2020-04-04 19:25 | disposition home or self-care (01) ==
PROVIDERS: Emergency Provider Emergency Medicine
DX: R10.31 Right lower quadrant pain (principal); I88.0 Nonspecific mesenteric lymphadenitis; R50.9 Fever, unspecified; R11.0 Nausea; Z20.822 Contact with and (suspected) exposure to COVID-19
CPT/HCPCS: 36415; 71045; 74177; 76856; 80053; 81003; 81015; 81025; 83605; 83690; 84145; 85025; 85610; 85730; 87040; 87635; 96360; 96361; 99284; Q9967